=== PATIENT | male | born 1975 | race Caucasian/White ===

== ENCOUNTER 2018-11-01 10:18 | Observation (INO) | payer BC ==
[~2018-11-01] VITALS: Ht 170.2 cm; Wt 110.9 kg
[2018-11-01] MEDS ORDERED: SODIUM CHLORIDE 0.9% 1,000 ML IV ONE (10:39)
[2018-11-01] MEDS ORDERED: ALBU18HF INH (10:45)
[2018-11-01] MEDS ORDERED: ATOR20TA PO (10:45)
[2018-11-01] MEDS ORDERED: LOSA25TA25 PO (10:45)
[2018-11-01] MEDS ORDERED: CARV25TA12 PO (10:45)
[2018-11-01] MEDS ORDERED: ASPI81TA45 PO (10:45)
[2018-11-01] MEDS ORDERED: PLEASE ENTER HEIGHT AND WEIGHT MC SCH (11:00)
[2018-11-01] MEDS ORDERED: VERAPAMIL 2.5 MG/ML, 2ML ONE (11:48)
[2018-11-01] MEDS ORDERED: MIDAZOLAM 1 MG/ML, 5ML ONE (11:48)
[2018-11-01] MEDS ORDERED: TICAGRELOR 90 MG TABLET ONE (11:48)
[2018-11-01] MEDS ORDERED: FENTANYL PF 100 MCG/2ML ONE (11:48)
[2018-11-01] MEDS ORDERED: LIDOCAINE 2%, 20ML ONE (11:48)
[2018-11-01] MEDS ORDERED: BIVALIRUDIN 250 MG ONE (11:48)
[2018-11-01] MEDS ORDERED: HEPARIN 1,000 UNITS/ML, 10ML ONE (11:48)
[2018-11-01] MEDS ORDERED: ADENOSINE 90 MG/30 ML ONE (12:39)
[2018-11-01] MEDS ORDERED: SODIUM CHLORIDE 0.9% 1,000 ML IV SCH (13:08)
[2018-11-01 13:31] VITALS: BP 116/76
[2018-11-01] MEDS ORDERED: ACETAMINOPHEN 325 MG TABLET ONE (15:04)
[2018-11-01] MEDS ORDERED: ACETAMINOPHEN 325 MG TABLET PO PRN (15:30)
[2018-11-01] MEDS ORDERED: ATORVASTATIN 20 MG TABLET PO SCH (21:00)
[2018-11-01] MEDS ORDERED: TICAGRELOR 90 MG TABLET PO ONE (21:00)
[2018-11-01] MEDS: CARVEDILOL 25 MG TABLET PO SCH (21:07)
[2018-11-01 21:12] VITALS: BP 132/88
[2018-11-02 02:12] VITALS: BP 129/73
[2018-11-02 04:45] LABS: ANION GAP 9 mmol/L (5-15); CALCIUM 8.8 mg/dL (8.5-10.1); CHLORIDE 107 mmol/L (98-107); CREATININE 0.88 mg/dL (0.7-1.3)
[2018-11-02 06:50] VITALS: BP 113/74
[2018-11-02] MEDS ORDERED: CLOP75TA PO (08:48)
[2018-11-02] MEDS ORDERED: LOSARTAN 50MG TABLET PO SCH (09:00)
[2018-11-02] MEDS: ALBUTEROL SULFATE 2.5 MG/3 ML NPPB SCH ×2 (09:00→10:52)
[2018-11-02] MEDS ORDERED: ASPIRIN 81 MG TABLET EC PO SCH ×2 (09:00)
[2018-11-02] MEDS ORDERED: ISOSORBIDE MONONITRATE ER 30 MG TABLET PO SCH (09:00)
[2018-11-02] MEDS ORDERED: LOSARTAN 25MG TABLET PO SCH (09:00)
[2018-11-02] MEDS: CARVEDILOL 25 MG TABLET PO SCH (09:34)
[2018-11-02] MEDS ORDERED: CLOPIDOGREL 75 MG TABLET PO SCH (10:00)
== END 2018-11-02 11:45 | disposition home or self-care (01) ==
LOC: CACL 10:18 → ORIP 13:08 → 5SO 13:31 → DCLOUNGE 11-02 11:25
PROVIDERS: ADMIT Internal Medicine Cardiovascular Disease; ATTEND Internal Medicine Cardiovascular Disease
DX: I25.10 Atherosclerotic heart disease of native coronary artery without angina pectoris (principal); E78.5 Hyperlipidemia, unspecified; G47.33 Obstructive sleep apnea (adult) (pediatric); I10 Essential (primary) hypertension; J45.909 Unspecified asthma, uncomplicated; R94.39 Abnormal result of other cardiovascular function study; F14.10 Cocaine abuse, uncomplicated
CPT/HCPCS: 36415; 80048; 85014; 85018; 93458; 93571; 94640; 99156; 99157; C1725; C1769; C1874; C1887; C1894; C9600; G0378; J0153; J0583; J1644; J2250; J3010; J3490; J7613; Q9967

== ENCOUNTER → 2019-04-15 | Outpatient (CLI) | payer BC ==
[~2019-04-15] MED LIST: ALBU18HF INH; ASPI81TA45 PO; ATOR20TA PO; CARV25TA12 PO; CLOP75TA PO; LOSA25TA25 PO
== END | disposition home or self-care (01) ==
LOC: CVU 11:50
PROVIDERS: ATTEND Internal Medicine Cardiovascular Disease
DX: I25.10 Atherosclerotic heart disease of native coronary artery without angina pectoris (principal); R60.0 Localized edema; M79.605 Pain in left leg; M79.604 Pain in right leg
CPT/HCPCS: 93880; 93922; 93970